=== PATIENT | male | born 1985 | race Caucasian/White ===

== ENCOUNTER 2017-06-07 12:28 | Emergency (ER) | payer OTHER ==
[~2017-06-07] VITALS: Ht 180.3 cm; Wt 66.2 kg
[2017-06-07 12:34] VITALS: Ht 180.3 cm; Wt 66.2 kg
--- NOTE | 2017-06-07 12:37 | EMERGENCY ROOM VISIT NOTE ---
History Report prepared by Rina: Bijan Salas Under the Supervision of: Dr. Vitaliy Kwon M.D. First contact with patient: 12:31 Stated Complaint: back/neck pain History of Present Illness The patient is a 31 year old male who presents to the Emergency Room with complaints of constant low back pain and neck pain beginning 45 minutes ago. The patient states he is also experiencing discomfort in his femurs, bilaterally , to his knees and a mild headache. He reports he was sitting in a ski lift chair started sliding down the wire. The patient notes the chair slid into four chairs behind him. He denies loss of consciousness, abdominal pain, and chest pain. Source of History: patient Onset: 45 minutes ago Position: back (lower) Timing: constant Associated Symptoms: + headache (mild), No LOC, No chest pain, No abdominal pain Note: Associated symptoms: bilateral femur discomfort Review of Systems See HPI for pertinent positives & negatives. A total of 10 systems reviewed and were otherwise negative. Past Medical & Surgical The patient reports no pertinent past medical history. Family History Patient reports no known family medical history. Social History Marital Status: Occupation Status: employed Current/Historical Medications Scheduled Lidocaine (Lidoderm Patch 5%), 1 PATCH TD DAILY Scheduled PRN Naproxen (Naproxen Dr), 375 MG PO Q8 PRN for Pain Oxycodone/Acetaminophen 5MG/325MG (Percocet 5MG/325MG), 1-2 TAB PO Q4H PRN for Pain Tramadol (Ultram), 100 MG PO Q8 PRN for Pain Allergies Coded Allergies: Sulfamethoxazole w/Trimethoprim (Verified Allergy, Unknown, severe mgraine , 06/07/17) Physical Exam Vital Signs Date Time Temp Pulse Resp B/P (MAP) Pulse Ox O2 Delivery O2 Flow Rate FiO2 06/07/17 15:22 37.5 96 18 138/71 95 06/07/17 14:02 96 18 138/71 95 Room Air 06/07/17 12:34 37.5 94 18 144/79 96 Room Air Physical Exam GENERAL: Patient is a healthy-appearing well-nourished 31 year old male. HEAD: Normocephalic atraumatic EYES: Ocular movements intact pupils equal and react to light OROPHARYNX mucous membranes are moist no exudates present no erythema or edema present NECK: Supple no nuchal rigidity. Tender to the C5-C6. Cervical collar in place. CHEST: Good equal expansion LUNGS: Clear and equal to auscultation CARDIAC: Normal S1 and S2 ABDOMEN: Soft nontender no guarding BACK: No CVA tenderness EXTREMITIES: No pain upon palpation normal muscle strength in all groups no clubbing cyanosis or edema NEURO: Patient is following commands and answering questions appropriately. Alert and oriented x3 Cranial Nerves 2-12 grossly intact Medical Decision & Procedures ER Provider Diagnostic Interpretation: Radiology results as stated below per my review and radiologist interpretation: LUMBAR SPINE CT CT DOSE: HISTORY: Pt c/o low back pain after accident TECHNIQUE: Multiaxial CT images of the lumbar spine were performed and reformatted in the sagittal and coronal plane without the use of contrast. A dose lowering technique was utilized adhering to the principles of ALARA. COMPARISON: None. FINDINGS: No fractures. No subluxation. Paraspinal soft tissues are unremarkable. Mild disc space narrowing at L5-S1 with a small left paracentral focal disc protrusion. This abuts the transiting left S1 nerve roots. Punctate stone within the right kidney. No hydronephrosis. IMPRESSION: 1. No fractures within the lumbar spine. 2. Small left paracentral focal disc protrusion at L5-S1 which abuts the transiting left S1 nerve root. Electronically signed by: Lloyd Wyman M.D. 06/07/2017 2:00 PM Dictated Date/Time: 06/07/2017 1:[address] DOSE: 1550.06 mGy.cm HISTORY: Pt c/o neck pain after accident TECHNIQUE: Multiaxial CT images of the cervical spine were performed and reformatted in the sagittal and coronal plane without the use of contrast. A dose lowering technique was utilized adhering to the principles of ALARA. COMPARISON: None. FINDINGS: No fractures. No subluxation. Prevertebral soft tissues and the C1-C2 interval are intact. No pneumothorax. Mild dextroscoliosis which could be positional. Small endplate osteophytes at C5-C6. There is also mild disc space narrowing at C5-C6 the visualized posterior fossa is unremarkable. There is a focal central disc protrusion at C5-C6 resulting in mild central canal narrowing. Posterior fusion defect at C1 considered developmental. IMPRESSION: No fractures within the cervical spine. Mild degenerative changes at C5-C6. Electronically signed by: Lloyd Wyman M.D. 06/07/2017 1:57 PM Dictated Date/Time: 06/07/2017 1:51 PM L FEMUR 2 VIEWS ROUTINE, R FEMUR 2 VIEWS ROUTINE CLINICAL HISTORY: Pt c/o b/l leg pain . Skiing injury. COMPARISON STUDY: None. FINDINGS: No fracture or dislocation. Soft tissues are unremarkable. No radiopaque foreign bodies. No knee effusions. IMPRESSION: No fracture or dislocation within the right or left femur. Electronically signed by: Lloyd Wyman M.D. 06/07/2017 2:59 PM Dictated Date/Time: 06/07/2017 2:56 PM Medications Administered Medications (Trade) Dose Ordered Sig/Connor Route Start Time Stop Time Status Last Admin Dose Admin Ibuprofen (Motrin Tab) 600 mg NOW STAT PO 06/07/17 12:50 06/07/17 12:52 DC 06/07/17 12:58 600 MG Lidocaine (Lidoderm Patch 5%) 1 patch NOW STAT TD 06/07/17 12:50 06/07/17 12:52 DC 06/07/17 12:59 1 PATCH Oxycodone/ Acetaminophen (Percocet 5-325mg Tab) 2 tab NOW ONCE PO 06/07/17 13:00 06/07/17 13:01 DC 06/07/17 12:59 2 TAB ED Course 1232: Past medical records reviewed. The patient was evaluated in room C10. A complete history and physical examination was performed. 1250: Ordered Lidocaine 1 patch TD, Ibuprofen 600mg PO 1254: I reevaluated the patient. I updated him of his current exam findings. He is requesting pain medication. 1300: Ordered Oxycodone/Acetaminophen 2 tab PO 1504: Upon reexamination the patient is feeling better. I discussed results and treatment plan with the patient. He verbalizes agreement and understanding. The patient is ready for discharge. Medical Decision Differential diagnosis: Etiologies such as fracture, dislocation, intra-abdominal, pneumothorax, intrathoracic , intracranial, neurologic, as well as other traumatic pathologies were entertained. This is a 31-year-old male who presents emergency department complaining of back pain after ischemia left incident. I will note that the patient is able to walk was tiptoes as well as his heels. He was sent for CAT scan of the C- spine as well as the lumbar spine. This did not show any acute process. The patient does have a history of back problems that radiates down the left leg and I feel that would be consistent with the slipped disc on CAT scan. states that this is not new. The patient was given Motrin as well as Percocet in the emergency department and I stressed the need for follow-up with orthopedic spine if he is continuing to have problems. Patient and are in agreement with the treatment plan. Medication Reconcilliation Current Medication List: was personally reviewed by me Blood Pressure Screening Patient's blood pressure: Elevated blood pressure Blood pressure disposition: Referred to PCP Impression Primary Impression: Ski lift accident Additional Impression: Back pain Scribe Attestation The scribe's documentation has been prepared under my direction and personally reviewed by me in its entirety. I confirm that the note above accurately reflects all work, treatment, procedures, and medical decision making performed by me. Departure Information Dispostion Home / Self-Care Prescriptions Oxycodone/Acetaminophen 5MG/325MG (PERCOCET 5MG/325MG) Tab 1-2 TAB PO Q4H Y for Pain, #14 TAB Prov: Vitaliy Kwon MD 06/07/17 Lidocaine (Lidoderm Patch 5%) 1 Ea Tdsy 1 PATCH TD DAILY for 30 Days, #30 PATCH Prov: Vitaliy Kwon MD 06/07/17 Referrals No Doctor, Assigned (PCP) Forms HOME CARE DOCUMENTATION FORM, IMPORTANT VISIT INFORMATION, WORK / SCHOOL INSTRUCTIONS Patient Instructions Back Pain - [facility], ED Low Back Pain Injury, My [facility] Additional Instructions Follow up with DR Galeana's office for continued pain You were found to have an elevated blood pressure today (>120 sytolic or >90 diastolic). Per medicare guidelines, you need to follow up with this blood pressure screening with your Primary Care Physician (PCP). For a new PCP call [phone]. You received narcotic or benzodiazepene medication while in the emergency room today. This is an addictive medication that may cause drowziness as well as constipation. Do not drive, operate heavy machinery, or drink alcohol under the influence of this medication. Take Naproxen as directed Apply Lidoderm patch Take Percocet for breakthrough pain You have been examined and treated today on an emergency basis only. This is not a substitute for, or an effort to provide, complete comprehensive medical care. It is impossible to recognize and treat all injuries or illnesses in a single emergency department visit. It is therefore important that you follow up closely with your PCP. Call as soon as possible for an appointment. Thank you for your time and consideration. I look forward to speaking with you again soon. Please don't hesitate to call us if you have any questions. Problem Qualifiers Primary Impression: Ski lift accident Encounter type: initial encounter Qualified Codes: V98.3XXA - Accident to, on or involving ski lift, initial encounter Additional Impression: Back pain Back pain location: low back pain Chronicity: acute Back pain laterality: left Sciatica presence: without sciatica Qualified Codes: M54.5 - Low back pain
[2017-06-07] MEDS ORDERED: LIDODERM (LIDOCAINE) PATCH 5% TD STA (12:50)
[2017-06-07] MEDS ORDERED: IBUPROFEN 600 MG TAB PO STA (12:50)
[2017-06-07] MEDS ORDERED: NAPR375T5 PO (12:58)
[2017-06-07] MEDS ORDERED: TRAM-10 PO (12:58)
[2017-06-07] MEDS ORDERED: OXYCODONE/ACETAMINOPHEN 5-325 TAB PO ONE (13:00)
--- NOTE | 2017-06-07 13:58 | DIAGNOSTIC IMAGING REPORT ---
CERVICAL SPINE CT CT DOSE: 1550.06 mGy.cm HISTORY: Pt c/o neck pain after accident TECHNIQUE: Multiaxial CT images of the cervical spine were performed and reformatted in the sagittal and coronal plane without the use of contrast. A dose lowering technique was utilized adhering to the principles of ALARA. COMPARISON: None. FINDINGS: No fractures. No subluxation. Prevertebral soft tissues and the C1-C2 interval are intact. No pneumothorax. Mild dextroscoliosis which could be positional. Small endplate osteophytes at C5-C6. There is also mild disc space narrowing at C5-C6 the visualized posterior fossa is unremarkable. There is a focal central disc protrusion at C5-C6 resulting in mild central canal narrowing. Posterior fusion defect at C1 considered developmental. IMPRESSION: No fractures within the cervical spine. Mild degenerative changes at C5-C6. Electronically signed by: Lloyd Wyman M.D. 06/07/2017 1:57 PM Dictated Date/Time: 06/07/2017 1:51 PM
--- NOTE | 2017-06-07 14:01 | DIAGNOSTIC IMAGING REPORT ---
LUMBAR SPINE CT CT DOSE: HISTORY: Pt c/o low back pain after accident TECHNIQUE: Multiaxial CT images of the lumbar spine were performed and reformatted in the sagittal and coronal plane without the use of contrast. A dose lowering technique was utilized adhering to the principles of ALARA. COMPARISON: None. FINDINGS: No fractures. No subluxation. Paraspinal soft tissues are unremarkable. Mild disc space narrowing at L5-S1 with a small left paracentral focal disc protrusion. This abuts the transiting left S1 nerve roots. Punctate stone within the right kidney. No hydronephrosis. IMPRESSION: 1. No fractures within the lumbar spine. 2. Small left paracentral focal disc protrusion at L5-S1 which abuts the transiting left S1 nerve root. Electronically signed by: Lloyd Wyman M.D. 06/07/2017 2:00 PM Dictated Date/Time: 06/07/2017 1:57 PM
--- NOTE | 2017-06-07 15:00 | DIAGNOSTIC IMAGING REPORT ---
L FEMUR 2 VIEWS ROUTINE, R FEMUR 2 VIEWS ROUTINE CLINICAL HISTORY: Pt c/o b/l leg pain . Skiing injury. COMPARISON STUDY: None. FINDINGS: No fracture or dislocation. Soft tissues are unremarkable. No radiopaque foreign bodies. No knee effusions. IMPRESSION: No fracture or dislocation within the right or left femur. Electronically signed by: Lloyd Wyman M.D. 06/07/2017 2:59 PM Dictated Date/Time: 06/07/2017 2:56 PM
[2017-06-07] MEDS ORDERED: NF656 TD (15:08)
[2017-06-07] MEDS ORDERED: OXYC-57 PO (15:08)
[2017-06-07 15:22] VITALS: BP 138/71; PULSE 96; TEMP 37.5; O2SAT 95
== END 2017-06-07 15:24 | disposition home or self-care (01) ==
LOC: C.EDC 12:31
DX: M54.5 Low back pain (principal); V98.3XXA Accident to, on or involving ski lift, initial encounter; M54.2 Cervicalgia; M79.651 Pain in right thigh; M79.652 Pain in left thigh; R51 Headache; Z87.39 Personal history of other diseases of the musculoskeletal system and connective tissue